=== PATIENT | female | born 1950 | race Caucasian/White ===

== ENCOUNTER → 2020-12-29 00:38 | Outpatient (CLI) | payer MEDICARE, SELFPAY ==
[2020-12-29 18:42] LABS: SARS-CoV-2 RNA PCR Negative
== END ==
PROVIDERS: Visit Provider Internal Medicine Gastroenterology
DX: Z01.812 Encounter for preprocedural laboratory examination (principal); Z20.822 Contact with and (suspected) exposure to COVID-19
CPT/HCPCS: C9803; U0003; U0005

== ENCOUNTER 2021-01-01 01:14 | Day surgery (SDC) | payer MEDICARE, SELFPAY ==
[2021-01-01 08:41] VITALS: BP 91/52; PULSE 89; RESP 18; TEMP 36.3; O2SAT 96; BMI 17.4
[2021-01-01] MEDS: LACTATED RINGERS 1,000 ML 150 ML IV CONT (08:54)
--- NOTE | 2021-01-01 09:41 | WPDANESEPPF ---
Anes - Initial Pre Proc Eval Procedure: Operation Date: 01/01/21 09:45 Proposed Procedures p Esophagogastroduodenoscopy with Botox - Jalen Duarte MD Date/Time: 01/01/21 09:41 Surgeon: Jalen Duarte MD Pre Op Diagnosis: achalasia Patient Data Age: 70 Gender: F Height: 5 ft 3 in Weight: 44.5 kg Last Vital Signs Temp 97.4 F L 01/01/21 08:41 Pulse 89 01/01/21 08:41 Resp 18 01/01/21 08:41 BP 91/52 L 01/01/21 08:41 Pulse Ox 96 01/01/21 08:41 Allergies Allergy/AdvReac Type Severity Reaction Status Date / Time No Known Allergies Allergy Verified 01/01/21 08:38 Home Medications Medication Instructions Recorded Confirmed Type alendronate 70 mg tablet 70 mg PO WEEKLY 12/22/20 01/01/21 History topiramate 50 mg capsule 50 mg PO BID ea 12/22/20 01/01/21 History sprinkle,extended release 24 hr calcium carbonate-vitamin D3 1 tablet PO DAILY 12/26/20 01/01/21 History [Calcium with Vitamin D] multivit with min-folic acid 1 tablet PO DAILY 12/26/20 01/01/21 History [Adult One Daily Multivitamin] Patient hx anesthesia problems: none Family hx anesthesia problems: none [facility] Past Medical History Medical History (Updated 01/01/21 @ 09:41 by Zion Liu MD) Anemia Bronchitis Essential tremor Osteoporosis Social History Social History Smoking status: Never smoker Alcohol intake: never Substance use: never Living arrangements: with family Spiritual care concerns: No Anes - Eval Final PreProcedure Day of Procedure 01/01/21 09:41 Patient weight: thin Heart: regular rate and rhythm Lungs: clear to auscultation Airway: Mallampati scale class II Neurological: alert and oriented Last oral intake: >/= 8 hours ASA classification: II Emergent: no Anesthetic plan: proceed Anesthesia type and monitoring: general GIVS and standard monitoring Informed Consent: The patient's anesthetic plan and its attendant risks and benefits were discussed with the patient/family/POA. Questions were solicited and answers provided to the satisfaction of the patient/family/POA.
--- NOTE | 2021-01-01 09:43 | WPDHPUPDATE1 ---
History and Physical Update Update Date/Time: 01/01/21 09:43 History and Physical has been reviewed, including an updated exam of the patient. There are NO changes in the patient's condition. Risks, benefits, and alternatives have been discussed and questions answered. Patient agrees to proceed with procedure.
[2021-01-01] MEDS: BOTULINUM TOXIN TYPE A (*SPLP) 100 UNITS VIAL IM (09:50)
[2021-01-01 10:02] VITALS: BP 90/46; PULSE 83; RESP 22; O2SAT 97
[2021-01-01 10:12] VITALS: BP 86/43; PULSE 75; RESP 22; O2SAT 100
[2021-01-01 10:22] VITALS: BP 86/49; PULSE 68; RESP 21; O2SAT 98
== END 2021-01-01 10:32 | disposition home or self-care (01) ==
PROVIDERS: PCP Internal Medicine; Visit Provider Internal Medicine Gastroenterology
PROC: 0DJ08ZZ Inspection of Upper Intestinal Tract, Via Natural or Artificial Opening Endoscopic (ICD-10-PCS; CPT 43235; principal; 2021-01-01 09:45)
DX: K22.8 Other specified diseases of esophagus (principal); K22.0 Achalasia of cardia; M81.0 Age-related osteoporosis without current pathological fracture; R13.10 Dysphagia, unspecified
CPT/HCPCS: 43236; C9803; J0585; J7120; U0003; U0005

== ENCOUNTER 2024-07-02 15:12 | Emergency (ER) | payer MEDICARE, SELFPAY ==
--- NOTE | ~2024-07-02 | XR_ITS ---
EXAMINATION: XR finger 2nd LT min 2V DATE: 07/02/2024 15:49 INDICATION: Left hand needle penetration. TECHNIQUE: 3 views of left hand second digit were obtained. COMPARISON: None. FINDINGS: Alignment is normal. There is a 6 mm linear radiopaque foreign body in second distal phalan x. 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 There is a 2 mm radiopaque fo reign body in the soft tissues of the third digit. IMPRESSION: 1. 6 mm linear radiopaque foreign body in second distal phalanx. 2. 2 mm radiopaque foreign body in the soft tissues of the third digit. Reviewed, dictated and finalized at location [facility]. [facility]
[2024-07-02 15:21] VITALS: BP 147/58; PULSE 97; RESP 16; TEMP 36.4; O2SAT 97
--- NOTE | 2024-07-02 16:34 | ED_ITS ---
HPI - General Adult General Chief complaint: Skin/Abscess/Foreign Body Stated complaint: needle in nail? Time Seen by Provider: 07/02/24 15:38 Source: patient Mode of arrival: ambulatory Limitations: no limitations History of Present Illness HPI narrative: Patient presents for concern for foreign body in her left index finger. She was sewing with a sewing machine in the needle penetrated her finger through the n ail. She pulled most of it out but thinks that maybe some of the knee left in it. Of note she has another needle stuck in her middle finger on the left side but that was many years ago. Related Data Home Medications Medication Instructions Recorded Confirmed alendronate 70 mg tablet 70 mg PO WEEKLY 12/22/20 04/24/21 topiramate 50 mg capsule 50 mg PO BID 12/22/20 04/24/21 sprinkle,extended release 24 hr multivitamin with minerals-folic 1 tablet PO DAILY 12/26/20 04/24/21 acid 0.4 mg tablet (Adult One Daily Multivitamin) Allergies Allergy/AdvReac Type Severity Reaction Status Date / Time No Known Allergies Allergy Verified 04/24/21 08:57 Review of Systems Review of Systems: All systems reviewed & are unremarkable except as noted in HPI and below PMFSH Past Medical History Medical History Achalasia Anemia Bronchitis Essential tremor Osteoporosis Social History Social History Smoking status: Never smoker Alcohol intake: never Substance use: never Living arrangements: with family Occupation/Education: retired Spiritual care concerns: No Exam Narrative: Constitutional: Generally well appearing, no acute distress Head: Atraumatic, no deformities. Eyes: Pupils equal, round, and reactive to light. Neck: Supple, no tracheal deviation, no JVD. ENMT: Mucous membranes moist Cardiovascular: S1, S2 auscultated. No murmurs, rubs, or gallops. No S3/S4. Normal Distal pulses. No peripheral edema. Respiratory: Lung sounds equal. No wheezes, rales, or rhonchi. Gastrointestinal: Abdomen was soft, nondistended Musculoskeletal: Normal muscle tone and bulk. No obvious deformities over extremities. Skin: No rashes. Pinpoint wound over mid finger nail going through to the palmar aspect of the finger Neurological: Strength 5/5 in extremities. Distal sensation intact. Mental Status: Awake, alert and oriented x3. Follows commands Course Vital Signs Vital signs: Vital Signs Temperature 36.4 C 07/02/24 15:21 Pulse Rate 97 07/02/24 15:21 Respiratory Rate 16 07/02/24 15:21 Blood Pressure 147/58 H 07/02/24 15:21 Pulse Oximetry 97 07/02/24 15:21 Temperature 36.4 C 07/02/24 15:21 Pulse Rate 97 07/02/24 15:21 Respiratory Rate 16 07/02/24 15:21 Blood Pressure 147/58 H 07/02/24 15:21 Pulse Oximetry 97 07/02/24 15:21 Medical Decision Making MDM Narrative Medical decision making narrative: Patient with sewing needle through finger. Exam shows there and through injury over top of the nail. Unable to visualize any foreign body. X-ray does confirm there is a foreign body 6 mm however. Will have patient follow-up with plastic surgery for removal if she requires but patient just wants to follow-up with her PCP and hold off on any of that at this point because she wants to speak to her PCP 1st. Updated tetanus. Given prescription for Keflex. Pt feeling improved and would like to go home at this point. Return precautions were given to the patient include any new or worsening symptoms or development of and not limited to any chest pain, shortness of breath, lightheadedness, abdominal pain, fevers, chills. Patient understands and agrees. They are to follow-up with her PCP. All questions were answered. I reviewed the patient's vital signs, history, allergies, and labs and imaging workup. Vital Signs Vital Signs: Vital Signs Temperature 36.4 C 07/02/24 15:21 Pulse Rate 97 07/02/24 15:21 Respiratory Rate 16 07/02/24 15:21 Blood Pressure 147/58 H 07/02/24 15:21 Pulse Oximetry 97 07/02/24 15:21 Temperature 36.4 C 07/02/24 15:21 Pulse Rate 97 07/02/24 15:21 Respiratory Rate 16 07/02/24 15:21 Blood Pressure 147/58 H 07/02/24 15:21 Pulse Oximetry 97 07/02/24 15:21 Discharge Plan Discharge Clinical Impression: Foreign body in skin of finger of left hand Patient Disposition: Home, Self-Care Condition: Stable Instructions: Antibiotic Form, Soft Tissue Foreign Body (ED) Prescriptions: No Action alendronate 70 mg tablet 70 mg PO WEEKLY topiramate 50 mg cap,sprinkle,ER 24hr dose pack 50 mg PO BID Adult One Daily Multivitamin 0.4 mg Tablet 1 tablet PO DAILY Follow-up/Referrals: PHYSICIAN NOT ON STAFF,NONSTAFF [Primary Care Provider] - Time of Disposition: 16:48
[2024-07-02] MEDS: TETANUS,DIPHTHERIA,AC PERTUSSIS ADULT (0.5 ML) BOOSTRIX IM (17:26)
[2024-07-02 17:32] VITALS: BP 137/88; PULSE 86; RESP 18; TEMP 36; O2SAT 95
== END 2024-07-02 17:34 | disposition home or self-care (01) ==
PROVIDERS: Emergency Provider Emergency Medicine
DX: S60.451A Superficial foreign body of left index finger, initial encounter (principal); W45.8XXA Other foreign body or object entering through skin, initial encounter; Z23 Encounter for immunization
CPT/HCPCS: 73140; 90471; 90715; 99283